=== PATIENT | male | born 1960 | race Caucasian/White ===

== ENCOUNTER 2020-10-02 09:46 | Inpatient (IN) | payer BC, SELFPAY ==
[~2020-10-02] VITALS: Ht 165.1 cm; Wt 87.5 kg
[2020-10-02 09:54] VITALS: BP 177/99
--- NOTE | 2020-10-02 09:58 | NUR ---
PT AMBULATED TO BED 11
--- NOTE | 2020-10-02 10:03 | NUR ---
PT ARRIVES FROM HOME C/O CHEST PAIN HEAVY IN QUALITY 02/11 NON-RADIATING WITH SLIGHT SOB/DRY HEAVES. PT STATES TO HAVE TAKEN 81 mg ASA THIS MORNING BEFORE COMING TO ER. PT HAS NO Hx CARDIAC. Hx DIABETES TAKES METFORMIN 750 mg BID, GLIPIZIDE 10 mg DAILY, PREVIOUS TORN ROTATOR CUFF L SHOULDER, AND L KNEE TEAR NKA
--- NOTE | 2020-10-02 10:10 | NUR ---
Received care of 60 y/o male coming from home c/o pressure like non-radiating mid-chest pain that started 2 am today. Pt took baby aspirin as advised by Primary doctor after making a call when pain started. Was also advised to check in the ER @ 0830 if pain does not subside. Pt reports pain has been constant. Also reports Hx of DM, NKA. Pt hooked to the desk monitor, ophthalmic technician apprentice notified for EKG. EKG obtained, NSR, awaiting MD assessment.
[2020-10-02] MEDS ORDERED: KETOROLAC 30 MG/ML VIAL IVP ONE (10:35)
[2020-10-02 11:04] LABS: BASOPHILS # (AUTO) 0.1 K/uL (0.00-0.22); BASOPHILS % (AUTO) 0.6 % (0.0-2.0); EOSINOPHILS % (AUTO) 0.4 % (0.0-4.0); HEMOGLOBIN 14.7 g/dL (12.0-18.0); LYMPHOCYTES % (AUTO) 22.4 % (20.5-51.1); MEAN CORPUSCULAR HEMOGLOBIN 30 pg (27-31); MEAN CORPUSCULAR HGB CONC 34 g/dL (33-37); MEAN CORPUSCULAR VOLUME 87.3 fL (80-94); MONOCYTES # (AUTO) 0.6 K/uL (0.8-1.0); MONOCYTES % (AUTO) 7.2 % (1.7-9.3); NEUTROPHILS # (AUTO) 6.2 K/uL (1.8-7.7); NEUTROPHILS % (AUTO) 69.4 % (42.2-75.2); PLATELET COUNT (AUTO) 280 K/uL (140-450); RED BLOOD CELL COUNT(AUTO) 4.92 MIL/uL (4.20-6.10); RED CELL DISTRIBUTION WIDTH 13.7 % (11.6-13.7); WHITE BLOOD COUNT (AUTO) 8.9 K/uL (4.8-10.8)
[2020-10-02 11:11] LABS: ALBUMIN 3.8 g/dL (3.4-5.0); ANION GAP 13.8 (8-16); CARBON DIOXIDE 24.4 mmol/L (21-32); POTASSIUM 4.2 mmol/L (3.5-5.1); TOTAL BILIRUBIN 0.3 mg/dL (0.0-1.0)
--- NOTE | 2020-10-02 11:34 | NUR ---
Received critical lab value troponin 0.502. Dr. Hare made aware.
[2020-10-02] MEDS ORDERED: METF750T PO (12:27)
[2020-10-02] MEDS ORDERED: GLIP10TA3 PO (12:27)
--- NOTE | 2020-10-02 12:34 | NUR ---
BELONGINGS LIST COMPLETED. PT STATED HE HAS A POCKET KNIFE IN POSESSION. POCKET KNIFE WAS LABELED AND GIVEN TO SECURITY.
--- NOTE | 2020-10-02 12:40 | NUR ---
Patient will be admitted to care of Dr Fowler. Admited to Tele. Will go to room 106 A. Belongings list completed. Report to Nikko MENENDEZ.
[2020-10-02 13:00] VITALS: BP 130/82
--- NOTE | 2020-10-02 13:00 | NUR ---
Patient admitted to room 106A from ED via gurney. Able to ambulate from gurney to bed with steady gait. Report received from ED nurse Johnny. Pt is aaox4, c/o 12/12 chest pain with tightness. Patient states pain has improved since this am. Respirations even & nonlabored in room air. Left forearm IV 20G intact & asymptomatic. Oriented to room and unit, able to repeat back instructions on proper use of call light.
[2020-10-02] MEDS ORDERED: ACETAMINOPHEN 325 MG TAB PO PRN (14:05)
[2020-10-02] MEDS ORDERED: ONDANSETRON 4 MG/2 ML VIAL IM/IVP PRN (14:05)
[2020-10-02] MEDS ORDERED: ZOLPIDEM 5 MG TAB PO PRN (14:05)
[2020-10-02] MEDS ORDERED: POTASSIUM CHLORIDE 10 MEQ TABER PO PRN (14:05)
[2020-10-02] MEDS ORDERED: HYDROcodone/APAP 7.5/325 MG 1 TAB PO PRN (14:05)
[2020-10-02] MEDS ORDERED: DOCUSATE SODIUM 100 MG GELCAP PO PRN (14:05)
[2020-10-02] MEDS ORDERED: guaiFENesin DM 200/20 MG-10 ML 10 ML UDC PO PRN (14:05)
[2020-10-02] MEDS ORDERED: LOVENOX 1MG/KG Q12H SUBQ SCH (14:10)
[2020-10-02] MEDS ORDERED: DEXTROSE 50% 50 ML SYR IVP PRN (14:15)
[2020-10-02] MEDS: NACL 0.9% 1,000 ML IV SCH (14:30)
[2020-10-02] MEDS ORDERED: ENOXAPARIN 100 MG/ML SYR SUBQ SCH (14:30)
[2020-10-02 14:41] LABS: PROTHROMBIN TIME 9.7 secs (10.8-13.4)
[2020-10-02 14:48] LABS: CHOL/HDL RATIO 6.6 (1-4.5); FREE T4 (FREE THYROXINE) 1.07 ng/dL (0.76-1.46); MAGNESIUM 1.8 mg/dL (1.8-2.4); THYROID STIMULATING HORMONE 1.25 uIU/mL (0.34-3.74)
[2020-10-02 16:00] VITALS: BP_SYST 109; BP_SYST 128; BP_DIAS 72; BP_DIAS 80
[2020-10-02] MEDS: BLOOD GLUCOSE MONITORING 1 DEV DEV FS SCH ×2 (16:30→21:57)
[2020-10-02] MEDS ORDERED: ATORVASTATIN 20 MG TAB PO SCH (17:00)
[2020-10-02] MEDS: metFORMIN 500 MG TAB PO SCH (17:49)
[2020-10-02] MEDS ORDERED: CRUSHER, PILL MC ONE (17:54)
[2020-10-02] MEDS: INSULIN LISPRO SLIDING SCALE 100 UNITS/ML VIAL SUBQ PRN ×2 (18:13→22:02)
[2020-10-02 20:00] VITALS: BP 132/79
[2020-10-02] MEDS: METOPROLOL 25 MG TAB PO SCH ×2 (21:00→23:45)
[2020-10-02] MEDS ORDERED: METFORMIN HCL 750 MG PO SCH (21:00)
--- NOTE | 2020-10-02 21:30 | NUR ---
C/O PAIN - WILL MEDICATE W/ NITROSTAT ORDERED . - ON TELE MONITOR - SR . - CHARGE NURSE INFORMED - WILL INFORM DR. ORDAZ .- FOR CLOSELY WATCH . Addendum: 10/03/20 at 0809 by Clarice Palencia RN AFTER 2 DOSES OF NITROSTAT SL - RE ASSESSED PT - PT SAID - CHEST PAIN RELIEVED - ON TELE MONITOR - SR .
[2020-10-02] MEDS: NITROGLYCERIN 0.4 MG TAB SL PRN ×2 (21:36→21:45)
[2020-10-02] MEDS: ENOXAPARIN 100 MG/ML SYR SUBQ SCH (21:41)
--- NOTE | 2020-10-02 22:29 | NUR ---
RELAY TO DR. ORDAZ ABOUT THE TRENDING UP SERUM TROPONIN LEVEL FROM 0.502 TO 5.187 AND PT HAD EPISODE OF CHEST PAIN AT PAST 2100 AND RELIEVED BY NITROSTAT SL 2 DOSES PT. DESCRIBED . Addendum: 10/02/20 at 2330 by Clarice Palencia RN DR. Hanh ORDAZ RESPONDED THE TEXT MSG AND PER DR. ORDAZ - REFER PT TO ROTARY ADJUSTER - FOR TRANSFER TO ANOTHER HOSPITAL FOR CARDIAC CATH . PER DR. SUSHMA BORJA WILL COVER HIM FOR THIS WEEK - WILL ENDORSE . Addendum: 10/02/20 at 2348 by Clarice Palencia RN I INFORMED DR. ORDAZ PT IS ON LEVONOX SQ ORDERED BY DR. STEEL - DR. ORDAZ AGREED W/ THAT .
[2020-10-03] VITALS: BP 125/78
--- NOTE | 2020-10-03 | NUR ---
MADE ROUNDS , NO S/SX OF ACUTE DISTRESS - DENIES ANY PAIN AT THIS TIME - ON TELE MONITOR - SR . CALL LIGHT WITHIN REACH .
--- NOTE | 2020-10-03 02:00 | NUR ---
SLEEPING . - CHEST RISE AND FALL EQUALLY - ON TELE MONITOR . WILL CONT. TO MONITOR . CALL LIGHT WITHIN REACH .
[2020-10-03 04:00] VITALS: BP 122/77
--- NOTE | 2020-10-03 06:00 | NUR ---
SENT UPDATE ABOUT THE PT TO Ely BORJA INCLUDING THE RESULT OF LATEST EKG - ST ELEVATED - WILL ENDORSE . DENIES PAIN AT THIS TIME . ON TELE MONITOR - SR . CALL LIGHT WITHIN REACH .
[2020-10-03] MEDS: INSULIN LISPRO SLIDING SCALE 100 UNITS/ML VIAL SUBQ PRN ×2 (06:40→12:33)
[2020-10-03] MEDS: NACL 0.9% 1,000 ML IV SCH ×2 (06:45→11:46)
[2020-10-03] MEDS: BLOOD GLUCOSE MONITORING 1 DEV DEV FS SCH ×2 (06:52→11:30)
--- NOTE | 2020-10-03 06:55 | NUR ---
ABNORM EKG PER PRINT OUT RN IS AWARE AND PROVIDED A COPY. COPY PLACED IN PT CHART.
[2020-10-03 06:59] LABS: BASOPHILS % (AUTO) 0.4 % (0.0-2.0); EOSINOPHILS # (AUTO) 0.1 K/uL (0-0.4); EOSINOPHILS % (AUTO) 1.2 % (0.0-4.0); HEMATOCRIT 40.7 % (36-52); HEMOGLOBIN 13.7 g/dL (12.0-18.0); LYMPHOCYTES # (AUTO) 3.1 K/uL (2.0-11.5); LYMPHOCYTES % (AUTO) 32.5 % (20.5-51.1); MEAN CORPUSCULAR HEMOGLOBIN 30 pg (27-31); MEAN CORPUSCULAR HGB CONC 34 g/dL (33-37); MEAN CORPUSCULAR VOLUME 88.9 fL (80-94); MONOCYTES # (AUTO) 0.7 K/uL (0.8-1.0); MONOCYTES % (AUTO) 7.8 % (1.7-9.3); NEUTROPHILS # (AUTO) 5.6 K/uL (1.8-7.7); NEUTROPHILS % (AUTO) 58.1 % (42.2-75.2); PLATELET COUNT (AUTO) 260 K/uL (140-450); RED BLOOD CELL COUNT(AUTO) 4.58 MIL/uL (4.20-6.10); RED CELL DISTRIBUTION WIDTH 13.9 % (11.6-13.7); WHITE BLOOD COUNT (AUTO) 9.6 K/uL (4.8-10.8)
[2020-10-03 07:02] LABS: ANION GAP 10.8 (8-16); CARBON DIOXIDE 25.4 mmol/L (21-32); POTASSIUM 4.2 mmol/L (3.5-5.1)
--- NOTE | 2020-10-03 07:30 | NUR ---
ENDORSED - PT - STABLE . DR. Rohan BORJA READ THE MSG - NO FURTHER ORDER MADE
[2020-10-03 08:00] VITALS: BP 123/75
[2020-10-03 08:08] LABS: T4 (THYROXINE) 8.1 ug/dL (4.5-12.0)
[2020-10-03] MEDS: metFORMIN 500 MG TAB PO SCH (08:52)
[2020-10-03] MEDS: METOPROLOL 25 MG TAB PO SCH (08:53)
--- NOTE | 2020-10-03 08:55 | NUR ---
CALL PLACE TO [facility] [place] TALKED TO ER[facility] IN [facility] REGARDING TRANSFER FOR CARDIAC CATH PROCEDURE , ERIC WILL REACHED OUT TO DR BORJA, WE WILL FAX FACE SHEET SHEET AND H AND P.
[2020-10-03] MEDS: ENOXAPARIN 100 MG/ML SYR SUBQ SCH (08:59)
--- NOTE | 2020-10-03 08:59 | NUR ---
SCHEDULED MEDICATIONS DUE GIVEN. WILL CONTINUE TO MONITOR.
[2020-10-03] MEDS ORDERED: PANTOPRAZOLE 40 MG TABEC PO SCH (09:00)
[2020-10-03] MEDS ORDERED: ECOTRIN 81 MG TABEC PO SCH (09:00)
[2020-10-03] MEDS ORDERED: lisinopriL 5 MG TAB PO SCH (09:00)
[2020-10-03] MEDS ORDERED: glipiZIDE 10 MG TAB PO SCH (09:00)
--- NOTE | 2020-10-03 09:08 | NUR ---
PATIENT HAS BEEN SCREENED AND CATEGORIZED HIGH NUTRITION RISK. PATIENT WILL BE SEEN WITHIN 1-2 DAYS OF ADMISSION. 10/03/2020-10/04/[address]
[2020-10-03 09:30] LABS: APPEARANCE,URINE CLEAR (CLEAR); BILIRUBIN,URINE NEGATIVE (NEGATIVE); BLOOD, URINE NEGATIVE (NEGATIVE); COLOR,URINE YELLOW (YELLOW); LEUKOCYTE ESTERASE ,URINE NEGATIVE (NEGATIVE); NITRITE, URINE NEGATIVE (NEGATIVE); PH,URINE 6.5 (5.0-9.0); UGLUCOSE 3+ (NEGATIVE)
[2020-10-03 09:42] LABS: BARBITURATE, URINE NEGATIVE ng/ml (NEG <=200); BENZODIAZEPINE, URINE NEGATIVE ng/mL (NEG <=200); CANNABINOID, URINE NEGATIVE ng/mL (NEG <=50); COCAINE, URINE NEGATIVE ng/mL (NEG <=300); OPIATE, URINE NEGATIVE ng/mL (NEG <=2000); PHENCYCLIDINE SCREEN,URINE NEGATIVE ng/mL (NEG <=25)
[2020-10-03 10:24] LABS: RBC,URINE NONE SEEN /HPF (0-5); WBC,URINE 0-5 /HPF (0-5)
--- NOTE | 2020-10-03 10:39 | NUR ---
CHEYANNE WALLACE, FROM [facility] CALLED [facility] AND SAID THAT SHE IS WORKING ON THE CASE FOR CARDIAC CATH TRANSFER. PER RODRIGO, SHE WILL CALL [facility] BACK WHEN THEY FIND A ROOM. WILL CONTINUE TO MONITOR.
[2020-10-03 12:00] VITALS: BP 130/79
--- NOTE | 2020-10-03 13:56 | NUR ---
10/03/20 RD INITIAL ASSESSMENT COMPLETED PLEASE REFER TO NUTRITION ASSESSMENT UNDER CARE ACTIVITY FOR ESTIMATED NUTRITIONAL NEEDS. RD RECOMMENDATIONS: 1. CONTINUE CARDIAC, CCHO 60 GM DIET TOLERATED. 2. CCHO AND HEART HEALTHY DIET EDUCATION PROVIDED TO PT. 3. RD WILL F/U IN 7 DAYS; LOW RISK. VINICIO BARCENAS, THERESA
--- NOTE | 2020-10-03 15:11 | NUR ---
TALKED TO JOCELYN IN [facility] PER JOCELYN NO BED YET,STILL WAITING, PER JOCELYN NEED ALSO AN AUTHORIZATION NUMBER FOR TRANSFER, TALKED TO CHARGE NURSE TO FOLLOW UP.
[2020-10-03] MEDS ORDERED: ATOR20TA40 PO (15:54)
[2020-10-03] MEDS ORDERED: METO25TA PO (15:54)
[2020-10-03] MEDS ORDERED: ASPI-1856 PO (15:54)
[2020-10-03] MEDS ORDERED: NITR0.4T1 SL (15:54)
[2020-10-03] MEDS ORDERED: LOV100I SUBQ (15:54)
[2020-10-03] MEDS ORDERED: METF500T PO (15:54)
[2020-10-03] MEDS ORDERED: LISI-424 PO (15:54)
--- NOTE | 2020-10-03 16:24 | NUR ---
@1545: RECEIVED A CALL FROM JOCELYN, FROM TRANSFER CENTER (#[phone]), STATED WE NEED TO INITIATE IN GETTING A TRANSFER AUTH FROM PT'S INSURANCE AND ALSO THE TRANSPORTATION AUTH FOR AMBULANCE. PER JOCELYN, THEY CAN STILL ACCEPT THE PT EVEN IF WE CAN NOT PROVIDE AN AUTH FOR HLOC, ALL THEY ASKED FROM US IS TO INITIATE IN CALLING PT'S INSURANCE. @1600: CALLED [employer] [facility] TEL#[phone]. NO ANSWER. PROMPT SAID: YOU HAVE REACHED US OUTSIDE OF NORMAL BUSINESS HOURS WHICH IS MONDAY-MONDAY FROM 7-5 PM PACIFIC TIME. CAN'T LEAVE ANY VOICEMAIL. @1600: CONTACTED [facility], SPOKE WITH SALLY, ETA FOR ALS TRANSPORTATION WILL BE IN 30 MINS. PER SALLY, NO NEED TO FAX PCS FORM, PT HAS [employer]. IRINEO ADAM AND RN ASSIGNED MADE AWARE.
--- NOTE | 2020-10-03 16:50 | NUR ---
TRANSFER INSTRUCTIONS PROVIDED TO PATIENT IN PREFERRED LANGUAGE OF FRENCH. INSTRUCTIONS ON MEDICATION REGIMEN, DIET REGIMEN, AND FOLLOW-UP WITH TOOLER AND MD IN [facility] PROVIDED. ANSWERED ALL OF PATIENT'S QUESTIONS REGARDING TRANSFER. CALLED [facility] TELE #3 UNIT AND GAVE REPORT TO GEMMA FAUST. ANSWERED ALL OF HIS QUESTIONS AND NOTIFIED HIM OF ESTIMATED ARRIVAL TIME OF [facility] TRANSPORT. GOVIND VERBALIZED COMPLETE UNDERSTANDING. [facility] TRANSPORT ON UNIT TO TAKE PATIENT TO [facility]. PATIENT TRANSFERRED AT THIS TIME IN STABLE CONDITION.
== END 2020-10-03 16:50 | disposition short-term general hospital (02) | DRG 311 ==
LOC: MED 09:46 → MTU 12:12
PROVIDERS: ADMIT Family Medicine; ATTEND Family Medicine
DX: I24.9 Acute ischemic heart disease, unspecified (principal); E87.1 Hypo-osmolality and hyponatremia; E11.9 Type 2 diabetes mellitus without complications; Z20.822 Contact with and (suspected) exposure to COVID-19; I10 Essential (primary) hypertension; E78.2 Mixed hyperlipidemia; E86.0 Dehydration; Z79.84 Long term (current) use of oral hypoglycemic drugs
CPT/HCPCS: 36415; 71045; 80048; 80053; 80305; 81001; 82150; 82948; 83036; 83690; 83735; 83880; 84100; 84436; 84439; 84443; 84479; 84484; 85025; 85610; 85730; 87081; 87086; 93005; J1650; J1815; J1885; J7030